=== PATIENT | male | born 1960 | race Caucasian/White ===

== ENCOUNTER 2016-09-01 14:28 | Emergency (ER) | payer BC ==
[2016-09-01 15:15] LABS: HEMOGLOBIN 16.7 gm/dl (14.0-17.5); RED BLOOD COUNT 5.53 M/UL (4.20-5.50); WHITE BLOOD COUNT 6.5 K/UL (4.5-11.0)
[2016-09-01 15:42] LABS: BUN/CREATININE RATIO 13 (0-10)
== END 2016-09-01 19:10 | disposition home or self-care (01) ==
LOC: ER1 14:28
PROVIDERS: Family Medicine
DX: R51 Headache (principal); I10 Essential (primary) hypertension; Z79.899 Other long term (current) drug therapy
CPT/HCPCS: 36415; 70450; 71010; 80053; 82550; 82553; 83690; 83874; 84484; 85025; 93005; 96374; 96375; 99284; J2270; J2405; J7030

== ENCOUNTER 2020-03-20 17:27 | Emergency (ER) | payer BC ==
[~2020-03-20 17:27] MED LIST: ZOFRAN ODT 4 MG4 MG SL
[2020-03-20 18:57] LABS: HEMOGLOBIN 17.4 gm/dl (14.0-17.5); RED BLOOD COUNT 5.67 M/UL (4.20-5.50); WHITE BLOOD COUNT 3.9 K/UL (4.5-11.0)
[2020-03-20 19:19] LABS: BUN/CREATININE RATIO 15 (0-10)
[2020-03-20] MEDS ORDERED: DECADRON6 MG PO (22:04)
[2020-03-20] MEDS ORDERED: ZITHROMAX250 MG PO (22:04)
[2020-03-20] MEDS ORDERED: ZOFRAN ODT 4 MG4 MG PO (22:04)
== END 2020-03-20 22:25 | disposition home or self-care (01) ==
LOC: ER1 17:27
PROVIDERS: Nurse Practitioner
DX: U07.1 COVID-19 (principal); J12.82 Pneumonia due to coronavirus disease 2019; I10 Essential (primary) hypertension; F17.220 Nicotine dependence, chewing tobacco, uncomplicated; Z79.899 Other long term (current) drug therapy
CPT/HCPCS: 71045; 80053; 82550; 82553; 83874; 84484; 85025; 85610; 96374; 96375; 99284; J1885; J2405; M0239; Q9967